=== PATIENT | male | born 1985 | race Caucasian/White ===

== ENCOUNTER 2019-03-30 12:06 | Outpatient (CLI) | payer MEDICAID ==
--- NOTE | 2019-03-31 08:10 | MRI Report ---
Reason: KNEE JOINT PAIN > 3 MONTHS, LEFT Procedure Date: 03/30/2019 Accession Number: [id number] / [id number] Procedure: MRI - Knee LT W/O CPT Code: FULL RESULT: EXAM: LEFT KNEE MRI WITHOUT CONTRAST EXAM DATE: 03/30/2019 01:05 PM. CLINICAL HISTORY: Left knee joint pain medially for 3 months. COMPARISON: 02/17/2019 radiograph. TECHNIQUE: Multiplanar, multisequence T1-weighted and fluid-sensitive sequences of the knee without contrast. Other: None. FINDINGS: Bones: No fractures. There are benign bone islands in the lateral femoral condyle and medial tibial plateau. No marrow edema. Articular Cartilage: Unremarkable. Medial Meniscus: The medial meniscus is intact. Lateral Meniscus: The lateral meniscus is intact. Cruciate Ligaments: The anterior and posterior cruciate ligaments are intact. Collateral Ligaments: The medial collateral and lateral collateral ligamentous structures are intact. Tendons: The quadriceps, patellar, semimembranosus, and popliteus tendons are unremarkable. Musculature: No edema or fatty atrophy. Other: No effusion. No popliteal cyst. No loose bodies. The medial and lateral retinacula are intact. Prepatellar subcutaneous edema is seen. IMPRESSION: 1. No internal derangement of the knee by MRI. [facility]
== END 2019-03-30 12:07 | disposition home or self-care (01) ==
LOC: DI 12:06
PROVIDERS: ATTEND Orthopaedic Surgery Sports Medicine
DX: M25.562 Pain in left knee (principal)

== ENCOUNTER 2023-11-18 19:53 | Emergency (ER) | payer MEDICAID ==
[2023-11-18 20:17] VITALS: BP 126/71; O2SAT 99
--- NOTE | 2023-11-18 20:34 | ED Physician Documentation ---
History of Present Illness - Stated complaint Stated Complaint: RT THUMB INJ - Chief complaint Chief Complaint: Ext Problem - History obtained from History obtained from: Patient - History of Present Illness Timing: Today Pain level max: 5 Pain level now: 2 - Additonal information Additional information: Patient is a 38-year-old male who presents to the emergency department with right thumb pain. He states that he was practicing grappling tonight when his finger was caught in clothing from his opponent. He felt his right thumb bend and felt a snap. He does not have any numbness or tingling. He does have some pain with movement. Patient is right-handed. Review of Systems Constitutional: denies: Fever GI: denies: Vomiting, Diarrhea Skin: denies: Rash Musculoskeletal: denies: Neck pain, Back pain Neurologic: denies: Headache PD PAST MEDICAL HISTORY - Past Medical History Past Medical History: No Cardiovascular: None Respiratory: None Neuro: None Endocrine/Autoimmune: None GI: None : None HEENT: None Psych: None Musculoskeletal: None Derm: None - Past Surgical History Past Surgical History: No - Present Medications Home Medications: Ambulatory Orders Medication Instructions Recorded Confirmed No Known Home Medications 11/18/23 11/18/23 - Allergies Allergies/Adverse Reactions: Allergies Allergy/AdvReac Type Severity Reaction Status Date / Time No Known Drug Allergies Allergy Verified 11/18/23 20:12 - Social History Does the pt smoke?: No Smoking Status: Never smoker Does the pt drink ETOH?: No Does the pt have substance abuse?: No - Immunizations Immunizations are current?: Yes - POLST Patient has POLST: No PD ED PE NORMAL - Vitals Vital signs reviewed: Yes - General General: Alert and oriented X 3, No acute distress - HEENT HEENT: Moist mucous membranes - Neck Neck: Supple, no meningeal sign - Derm Derm: Warm and dry - Extremities Extremities: Other (R thumb - Mild laxity at the MCP joint. No snuffbox tenderness. No bony tenderness over the thumb. Neurovascularly intact. Full range of motion, tested against resistance. Otherwise normal examination of the right hand and wrist.) - Neuro Neuro: Alert and oriented X 3 - Psych Psych: Normal mood, Normal affect Results - Vitals Vitals: Vital Signs - 24 hr 11/18/23 20:07 Temperature 36.9 C Heart Rate 84 Respiratory 17 Rate Blood Pressure 126/71 O2 Saturation 99 Oxygen O2 Source Room air - Rads (name of study) Right hand x-ray Relevant Findings:: Final report received, See rad report PD Medical Decision Making - ED course Complexity details: reviewed results, re-evaluated patient, considered differential, d/w patient ED course: 38-year-old male with what appears to be a right thumb sprain, concern for possible potential tendon injury. No acute findings on x-ray. Placed in a Velcro thumb spica for comfort. Recommend that if he still having issues in 1 week that he follow-up with orthopedics for repeat evaluation. Patient declines any pain medication here for home. Neurovascular intact. Patient counseled regarding signs and symptoms for which I believe and urgent re-evaluation would be necessary. Patient with good understanding of and agreement to plan and is comfortable going home at this time This document was made in part using voice recognition software. While efforts are made to proofread this document, sound alike and grammatical errors may occur. Departure - Departure Disposition: Home, Self Care Clinical Impression: Sprain of right thumb Qualifiers: Encounter type: initial encounter Sprain of finger site: unspecified site Qualified Code(s): S63.601A - Unspecified sprain of right thumb, initial encounter Condition: Good Instructions: ED Sprain Hand Follow-Up: [facility] [Provider Group] Comments: You can use Motrin or Tylenol as needed for pain. You can use the Velcro thumb spica as needed for comfort. Your x-ray does not show any abnormalities today, if you are still having pain or difficulty using the thumb in 1 week, I would follow-up with orthopedics for a recheck. Please return if you worsen. Forms: PCP List Discharge Date/Time: 11/18/23 21:43
--- NOTE | 2023-11-18 20:45 | XRAY Report ---
PROCEDURE: Hand 3+V RT INDICATIONS: HEARD A SNAP/PAIN + TENDERNESS R THUMB TECHNIQUE: 3 views of the hand(s) acquired. COMPARISON: None. FINDINGS: Bones: No fractures or dislocations. No suspicious bony lesions. Soft tissues: No suspicious soft tissue calcifications or masses. IMPRESSION: No acute bony abnormality. If clinical symptoms persist, recommend a follow-up exam in 7-10 days. Reviewed by: Christian Laguerre MD on 11/18/2023 8:43 PM PST Approved by: Christian Laguerre MD on 11/18/2023 8:43 PM PST Station ID: [id number]
== END 2023-11-18 21:43 | disposition home or self-care (01) ==
LOC: ED 19:53
DX: S63.601A Unspecified sprain of right thumb, initial encounter (principal); W23.0XXA Caught, crushed, jammed, or pinched between moving objects, initial encounter; Y93.75 Activity, martial arts
CPT/HCPCS: 99283

== ENCOUNTER 2023-12-07 08:00 | Outpatient (CLI) | payer MEDICAID ==
--- NOTE | 2023-12-07 17:19 | XRAY Report ---
PROCEDURE: Finger(s) RT INDICATIONS: RIGHT THUMB PAIN TECHNIQUE: AP hand, 2 views of the first finger(s) acquired. COMPARISON: None. FINDINGS: Bones: No fractures or dislocations. No suspicious bony lesions. Soft tissues: No suspicious soft tissue calcifications or masses. IMPRESSION: No acute bony abnormality. Reviewed by: Kasi Casanova MD on 12/07/2023 5:18 PM PST Approved by: Kasi Casanova MD on 12/07/2023 5:18 PM [id number] Station ID: [id number]
== END 2023-12-07 23:59 | disposition home or self-care (01) ==
LOC: DI.WOS 08:00
PROVIDERS: ATTEND Physician Assistant Surgical
DX: M79.644 Pain in right finger(s) (principal)

== ENCOUNTER 2023-12-24 13:22 | Outpatient (CLI) | payer MEDICAID ==
--- NOTE | 2023-12-24 19:59 | MRI Report ---
PROCEDURE: Hand RT WO INDICATIONS: RIGHT THUMB TENDON RUPTURE TECHNIQUE: Noncontrast oblique coronal T1 spin echo and T2 fast spin echo with fat saturation, axial and sagitta l T2 fast spin echo with fat saturation, through the thumb. COMPARISON: Right thumb radiograph dated 12/07/2023 right hand radiograph dated 11/18/2023. FINDINGS: Image quality: Excellent. Bones: The bones are normally aligned. Mild marrow edema involving dorsal aspect of first metacarpal head and adjacent dorsal aspect of first proximal phalangeal base is seen without definite fracture line. No other area of abnormal marrow signal. No suspicious bony lesions. First carpometacarpal joint: On sagittal images, the dorsal radial ligament and posterior oblique li gament appear intact. The intermetacarpal ligament between the 1st and 2nd metacarpal bases also alcira ears intact. On the volar aspect, the deep and superficial layers of the anterior oblique ligament a ppear intact. First metacarpophalangeal joint: Soft tissue swelling and edema surrounding first MCP joint with sma ll amount of joint fluid. The radial collateral ligament is thickened with intrasubstance T2 hyperint ense signal near its proximal insertion. The ulnar collateral ligament is also thickened with intrasu bstance T2 hyperintense signal near its distal insertion. The aponeurosis of the adductor pollicis mu scle also appears normal. The volar plate appears intact on sagittal images, situated between the ra dial and ulnar sesamoids. Thenar muscles: The superficial abductor pollicis longus muscle appears normal, with tendon insertin g on the radial base of the first proximal phalanx. The opponens pollicis muscle also appears normal , inserting on the first metacarpal shaft. The flexor pollicis brevis muscle appears normal, with te ndon inserting on the radial sesamoid and first proximal phalanx. The oblique and transverse heads o f the adductor pollicis muscle appear normal, inserting on the ulnar sesamoid and proximal phalanx as part of the adductor aponeurosis. Flexor pollicis longus tendon: Tendon fibers appear intact, coursing between the thenar eminence mus cles and the adductor pollicis muscle, and inserting on the volar base of the distal phalanx. The fi rst annular yariel at the level of the first MCP joint appears intact, intimate with the sesamoids. The second annular yariel at the level of interphalangeal joint also appears intact. Extensor tendons: There is suggestion of high-grade partial thickness tear to full-thickness rupture involving extensor pollicis brevis tendon at its insertion on posterior proximal phalangeal base with minimal proximal retraction of torn tendon fibers and surrounding fluid and soft tissue edema. The e xtensor pollicis longus tendon appears intact as it inserts on the dorsal base of the distal phalanx. The sagittal band at the level of the first MCP joint appears intact. Miscellaneous: No ganglion cysts. IMPRESSION: 1. Bony contusion involving dorsal aspect of first metacarpal head as well as dorsal aspect of first proximal phalangeal base. No definite fracture is seen. No dislocation. 2. Soft tissue swelling and edema surrounding first MCP joint with small amount of joint effusion. Lo w to moderate grade partial-thickness tear involving radial collateral ligament of first MCP joint an d at its proximal insertion. Low to moderate grade partial-thickness tear involving ulnar collateral ligament of first MCP joint and at its distal insertion. No full-thickness ligament rupture. 3. High-grade partial to full-thickness rupture involving extensor pollicis brevis tendon at its inse rtion on posterior proximal phalangeal base with minimal proximal retraction of torn tendon fibers. R est of the extensor and flexor tendons of right thumb are grossly intact. Reviewed by: Kasi Casanova MD on 12/24/2023 7:57 PM PST Approved by: Kasi Casanova MD on 12/24/2023 7:57 PM PST Station ID: [id number]
== END 2023-12-24 13:23 | disposition home or self-care (01) ==
LOC: DI 13:22
PROVIDERS: ATTEND Physician Assistant Surgical
DX: S66.211A Strain of extensor muscle, fascia and tendon of right thumb at wrist and hand level, initial encounter (principal); S60.011A Contusion of right thumb without damage to nail, initial encounter; M25.441 Effusion, right hand